=== PATIENT | female | born 1960 | race African-American/Black ===

== ENCOUNTER → 2018-04-15 17:26 | Outpatient (CLI) | payer OTHER ==
[2013-04-08 14:58] VITALS: BMI 33.5
[~2018-04-15 17:26] MED LIST: CARAFATE1 G PO; CORGARD20 MG PO; COZAAR50 MG PO; HYDROCHLOROTHIA25 MG PO; PRILOSEC20 MG PO; VENTOLIN HFA18 GM INH; VIVELLE-DO1 PATCH.B1 TD; ZANTAC150 MG PO
== END | disposition home or self-care (01) ==
LOC: D.MAMMO 10:15
DX: Z12.31 Encounter for screening mammogram for malignant neoplasm of breast (principal)